=== PATIENT | female | born 1945 | race Caucasian/White ===

== ENCOUNTER 2018-01-12 11:00 | Outpatient (RCR) | payer MEDICARE | END 2018-01-12 16:00 | disposition home or self-care (01) | LOC: PT 11:00 | PROVIDERS: ATTEND Orthopaedic Surgery | DX: M20.22 Hallux rigidus, left foot (principal); M25.872 Other specified joint disorders, left ankle and foot; M72.2 Plantar fascial fibromatosis; M79.672 Pain in left foot ==